=== PATIENT | female | born 1975 | race Caucasian/White ===

== ENCOUNTER 2024-06-12 12:39 | Outpatient (CLI) | payer OTHER | END 2024-06-12 12:40 | disposition home or self-care (01) | LOC: SCSMRI 12:39 | PROVIDERS: ATTEND Neurological Surgery | DX: M54.2 Cervicalgia (principal); M50.221 Other cervical disc displacement at C4-C5 level; Z98.1 Arthrodesis status | CPT/HCPCS: 72141 ==